=== PATIENT | female | born 1990 | race Caucasian/White ===

== ENCOUNTER 2020-06-04 01:21 | Emergency (ER) | payer OTHER ==
[2020-06-04 01:43] VITALS: BP 108/61; PULSE 68; TEMP 98.4; BMI 25.1
--- NOTE | 2020-06-04 01:45 | PDOC ---
Attending Attestation - Resident Resident Name: KrishTomer - ED Attending Attestation I have performed the following: I have examined & evaluated the patient, The case was reviewed & discussed with the resident, I agree w/resident's findings & plan - HPI HPI: 06/04/20 01:58 Pt has food poisoning from a flea market [place] habanero sauce. She thinks she may be . Pt has no PMHx, She is M1 possibly now; pt has had morning sickness with her other pregnancies. - Physicial Exam PE: 06/04/20 01:59 Normal exam no flank pain; afebrile no rashes A+Ox3 no neuro deficits no abd pain normal heart and lungs Pt is dry heaving; she vomited everything up. - Medical Decision Making 06/04/20 02:39 labs and beta quant pending pt will be hydrated and given antiemetic. 06/04/20 04:14 Pt is . She will go home with keflex Discharge - Discharge Information Problems reviewed: Yes Clinical Impression/Diagnosis: Qualifiers: Weeks of gestation: unspecified Qualified Code(s): Z34.90 - Encounter for supervision of normal , unspecified, unspecified trimester Condition: Improved Disposition: HOME - Additional Discharge Information Prescriptions: Cephalexin [Keflex] 500 mg PO BID 7 Days #14 capsule - Follow up/Referral Referrals: [facility] [place] [facility] at [place] [Provider Group] Lesly Celis MD [Staff Physician] - - Patient Discharge Instructions Patient Printed Discharge Instructions: Medications and , Hyperemesis Gravidarum Additional Instructions: You came into the ED for nausea, vomiting, and diarrhea. This is most likely due to your . At the ED we did a blood test that showed you were . We also did a urine test which showed you had a UTI. We gave you regalon to help you out with your nausea. For your UTI I prescribed you keflex twice a day for the next seven days. Please follow up with an OBGYN rayshawn. Also please follow up with a pcp within the next few days if sxs have not improved. For the next 24 hours try to drink only fluids and bland foods to possibly help with your GI sxs. If you have any of the following please return to the ED: - unable to eat anything by mouth - worsening abdominal pain - vaginal bleeding - fainting For any emergent symptoms please call for medical help right away - Post Discharge Activity
--- OUTSIDE RECORDS SUMMARY | 2020-06-04 01:46 | XMS ---
:1990 Author Organization [facility] Support Name Relationship Address Phone UE Unavailable Unavailable Unavailable RENÉ ALLEN [address] [place] [address] Re-disclosure Warning The records that you are about to access may contain information from federally- assisted alcohol or drug abuse programs. If such information is present, then the following federally mandated warning applies: This information has been disclosed to you from records protected by federal confidentiality rules (42 CFR part 2). The federal rules prohibit you from making any further disclosure of this information unless further disclosure is expressly permitted by the written consent of the person to whom it pertains or as otherwise permitted by 42 CFR part 2. A general authorization for the release of medical or other information is NOT sufficient for this purpose. The Federal rules restrict any use of the information to criminally investigate or prosecute any alcohol or drug abuse patient.The records that you are about to access may contain highly sensitive health information, the redisclosure of which is protected by Article 27-F of the [place] Public [employer] law. If you continue you may haveaccess to information: Regarding HIV / AIDS; Provided by facilities licensed or operated by the [facility] [facility] Office of Mental Health; or Provided by the [facility] Office for People With Developmental Disabilities. If such information is present, then the following [facility] mandated warning applies: This information has been disclosed to you from confidential records which are protected by state law. State law prohibits you from making any further disclosure of this information without the specific written consent of the person to whom it pertains, or as otherwise permitted by law. Any unauthorized further disclosure in violation of state law may result in a fine or chcf sentence or both. A general authorization for the release of medical or other information is NOT sufficient authorization for further disclosure. Insurance Providers Payer name Policy type Policy ID Covered Covered alliance party's Policy P sri / Coverage alliance party ID relationship to [employer] ormation type rodriguez BRENDEN [id number] HEALTH NON CAP SELF PAY SP INSURANCE Results ID Date Data Source [id number] 11/17/2019 12:00:00 AM EDT [facility] Name Value Range Interpretation Code Description Data Laem rce(s) Supporting Document(s ) 2019-nCoV [facility] RNA XXX USHA+probe- Imp This lab was ordered by [facility] and reported by [employer] Procedure
[2020-06-04] MEDS ORDERED: METOCLOPRAMIDE HCL INJECTION 10 MG/2 ML VIAL IVPUSH ONE (01:55)
[2020-06-04] MEDS ORDERED: SODIUM CHLORIDE 0.9% 500 ML INFUS.BAG IV ONE (01:55)
--- NOTE | 2020-06-04 02:00 | PDOC ---
History of Present Illness - General Chief Complaint: Vomiting/Diarrhea Stated Complaint: NAUSEA/DIARRHEA/ Time Seen by Provider: 06/04/20 01:39 - History of Present Illness Initial Comments: 06/04/20 03:14 30 yo female with pmh of asthma presents to ED for nausea, vomiting and diarrhea. Pt explains nonbloody diarrhea has been going on for one week. Pt today felt that she was increased nausea and two episodes of nbnb emesis. SHe also felt lightheaded today so decided to come in. Pt this week explained that she found out she was via urine test. Pt currently denies abdominal pain, vaginal bleeding, dysuria, urinary frequency, chest pain, sob, fevers. PMH: asthma Meds: albuterol prn allergies: nka PSH: denies Social: denies smoking and drugs; drinks occasionally PCP: Does not have OBGYN: Does not have Past History - Medical History Allergies/Adverse Reactions: Allergies Allergy/AdvReac Type Severity Reaction Status Date / Time No Known Allergies Allergy Verified 06/04/20 01:33 Home Medications: Ambulatory Orders Cephalexin [Keflex] 500 mg PO BID 7 Days #14 capsule 06/04/20 - Reproductive History Is Patient Now?: No - Psycho-Social/Smoking History Smoking History: Never smoked Have you smoked in the past 12 months: No Information on smoking cessation initiated: No - Substance Abuse Hx (Audit-C & DAST Scrn) How often the patient has a drink containing alcohol: Never Score: In Men: 4 or > Positive; In Women: 3 or > Positive: 0 Screen Result (Pos requires Nsg. Audit-10AR): Negative In the last yr the pt used illegal drug/Rx for NonMed reason: No Score: Yes response is considered Positive: 0 Screen Result (Positive result requires Nsg. DAST-10): Negative Review of Systems - Review of Systems Comments:: 06/04/20 03:20 GENERAL: Awake, alert, and fully oriented, in moderate distress. HEAD: No signs of trauma, normocephalic, atraumatic EYES: EOMI, sclera anicteric, conjunctiva clear ENT: Auricles normal inspection, hearing grossly normal, nares patent, oropharynx clear without exudates. Moist mucosa NECK: Normal ROM, supple, no lymphadenopathy, JVD, or masses LUNGS: No distress, speaks full sentences, clear to auscultation bilaterally HEART: Regular rate and rhythm, normal S1 and S2, no murmurs, rubs or gallops, peripheral pulses normal and equal bilaterally. ABDOMEN: Soft, nontender, normoactive bowel sounds. No guarding, no rebound. No masses EXTREMITIES : Normal inspection, Normal range of motion, no edema. No clubbing or cyanosis. NEUROLOGICAL: Cranial nerves II through XII grossly intact. Normal speech, normal gait, no focal sensorimotor deficits SKIN: Warm, Dry, normal turgor, no rashes or lesions noted *Physical Exam - Vital Signs Last Vital Signs Temp Pulse Resp BP Pulse Ox 98.4 F 68 20 108/61 100 06/04/20 01:33 06/04/20 01:33 06/04/20 01:33 06/04/20 01:33 06/04/20 01:33 - Physical Exam GENERAL: Awake, alert, and fully oriented, in moderate distress HEAD: No signs of trauma, normocephalic, atraumatic EYES:EOMI, sclera anicteric, conjunctiva clear ENT: Auricles normal inspection, hearing grossly normal, nares patent, oropharynx clear without exudates. Moist mucosa NECK: Normal ROM, supple, no lymphadenopathy, JVD, or masses LUNGS: No distress, speaks full sentences, clear to auscultation bilaterally HEART: Regular rate and rhythm, normal S1 and S2, no murmurs, rubs or gallops, peripheral pulses normal and equal bilaterally. ABDOMEN: Soft, nontender, normoactive bowel sounds. No guarding, no rebound. No masses EXTREMITIES : Normal inspection, Normal range of motion, no edema. No clubbing or cyanosis. NEUROLOGICAL: Cranial nerves II through XII grossly intact. Normal speech, normal gait, no focal sensorimotor deficits SKIN: Warm, Dry, normal turgor, no rashes or lesions noted Medical Decision Making - Medical Decision Making 06/04/20 04:00 30 yo female coming in with nausea vomiting and diarrhea. Pt is . Pt given regalon for nausea and fluid. Pt also got Beta HcG and urine test Pt urine showed bacteruria and was positive Pt received cephalexin for 7 days Pt felt better and was able to tolerate PO challenge was DC home Discharge - Discharge Information Problems reviewed: Yes Clinical Impression/Diagnosis: Qualifiers: Weeks of gestation: less than 8 weeks Qualified Code(s): Z3A.01 - Less than 8 weeks gestation of UTI (urinary tract infection) Qualifiers: Urinary tract infection type: site unspecified Hematuria presence: without hematuria Qualified Code(s): N39.0 - Urinary tract infection, site not specified Condition: Improved Disposition: HOME - Additional Discharge Information Prescriptions: Cephalexin [Keflex] 500 mg PO BID 7 Days #14 capsule - Follow up/Referral Referrals: [facility] [place] Internal [facility] at [place] [Provider Group] Lesly Celis MD [Staff Physician] - - Patient Discharge Instructions Patient Printed Discharge Instructions: Medications and , Hyperemesis Gravidarum Additional Instructions: You came into the ED for nausea, vomiting, and diarrhea. This is most likely due to your . At the ED we did a blood test that showed you were . We also did a urine test which showed you had a UTI. We gave you regalon to help you out with your nausea. For your UTI I prescribed you keflex twice a day for the next seven days. Please follow up with an OBGYN rayshawn. Also please follow up with a pcp within the next few days if sxs have not improved. For the next 24 hours try to drink only fluids and bland foods to possibly help with your GI sxs. If you have any of the following please return to the ED: - unable to eat anything by mouth - worsening abdominal pain - vaginal bleeding - fainting For any emergent symptoms please call for medical help right away - Post Discharge Activity
[2020-06-04] MEDS ORDERED: METOCLOPRAMIDE HCL INJECTION 10 MG/2 ML VIAL ONE (02:21)
[2020-06-04 02:48] LABS: EPI CELLS >36 /uL (0-25.1); HYALINE CASTS 1 /uL (0-3.1); PH,URINE 7.5 (5.0-8.0); URINE APPEARANCE CLOUDY; URINE BACTERIA 2607 /uL (0-1359); URINE BILIRUBIN NEGATIVE (NEGATIVE); URINE COLOR YELLOW; URINE GLUCOSE (UA) NEGATIVE (NEGATIVE); URINE KETONE NEGATIVE (NEGATIVE); URINE LEUK ESTERASE 1+ (NEGATIVE); URINE NITRITE NEGATIVE (NEGATIVE); URINE PROTEIN NEGATIVE (NEGATIVE); URINE UROBILINOGEN 0.2 mg/dL (0.2-1.0); URINE WBC 45 /uL (0-25.8)
[2020-06-04] MEDS ORDERED: CEPHALEXIN MONOHYDRATE 500 MG CAPSULE (UD) PO ONE (02:59)
[2020-06-04] MEDS ORDERED: CEPHALEXIN MONOHYDRATE 500 MG CAPSULE (UD) ONE (03:08)
[2020-06-04 06:26] LABS: URINE RBC 166.6 /uL (0-23.9)
== END 2020-06-04 04:38 | disposition home or self-care (01) ==
LOC: JER 01:21
PROC: 3E033NZ Introduction of Analgesics, Hypnotics, Sedatives into Peripheral Vein, Percutaneous Approach (ICD-10-PCS; principal; 2020-06-04)
DX: Z34.90 Encounter for supervision of normal pregnancy, unspecified, unspecified trimester (principal)
CPT/HCPCS: 36415; 81003; 84702; 99284-25